=== PATIENT | female | born 2000 | race Caucasian/White ===

== ENCOUNTER 2020-09-25 09:15 | Outpatient (CLI) | payer MEDICAID, SELFPAY ==
--- NOTE | 2020-09-25 09:27 | US_ITS ---
WS: [id number] ULTRASOUND EARLY TECHNIQUE: Transabdominal sonography of the pelvis was performed. Followed by transvaginal sonography to better evaluate the uterus and ovaries. CLINICAL INFORMATION: LMP: 07/27/2020 Beta hCG: Unknown. COMPARISON: None. FINDINGS: UTERUS AND GESTATIONAL SAC Intrauterine gestations: Estimated gestational age: 8w0d Yolk sac: 0.5 cm. [place] rump length (CRL): 1.6 cm. heart motion: 160 BPM. Subchorionic hemorrhage: None. OVARIES Right ovary: Normal. Left ovary: Left ovarian cyst measuring 2.7 x 1.8 x 1.6 cm FREE FLUID None. US/US OB <= 14 weeks fetus [id number] IMPRESSION: 1. Single live intrauterine with pole. 2. Estimated gestational age; 8w0d. Estimated delivery May 07, 2021 3. Left ovarian cyst measuring 2.7 x 1.8 x 1.6cm. Right ovary is normal. 4. No free fluid in the cul-de-sac.
== END 2020-09-25 09:16 | disposition home or self-care (01) ==
LOC: RAD 09:20
PROVIDERS: Family Provider Family Medicine; Visit Provider Electrodiagnostic Medicine
DX: Z33.1 Pregnant state, incidental (principal); L40.9 Psoriasis, unspecified; Z34.01 Encounter for supervision of normal first pregnancy, first trimester; N83.202 Unspecified ovarian cyst, left side
CPT/HCPCS: 76801

== ENCOUNTER 2020-12-18 08:38 | Outpatient (CLI) | payer BC, MEDICAID, SELFPAY ==
--- NOTE | 2020-12-18 08:45 | US_ITS ---
WS: [id number] OBSTETRICAL ULTRASOUND COMPLETE HISTORY: ANATOMY/SUPERVISION NORMAL COMPARISON: 09/25/2020 Single intrauterine gestation in transverse presentation. Cervix is Closed and normal length. Cervical length is 5.0 cm. Normal amount of amniotic fluid surrounds the fetus. Placenta: Posterior, no previa or abruption. Placenta is low-lying and in 1.5 cm from the internal c ervical os. Placenta grade 1 Heart: 150 BPM. Poorly visualized 4 chambers. Outflow tracts are not identified. Anatomy: Quality of the intracranial structure identification is limited but no abnormality is identi fied. Poor visualization of the spine. There are bladder is negative. Kidneys and stomach poorly visu alized. There is a three-vessel cord. Cord insertion site and abdominal wall are poorly visualized. LEFT arm poorly visualized. profile: Limited. Gender: Male. measurements: BPD = 4.3 cm = 19w0d HC = 17.3 cm = 19w6d AC = 15.6 cm = 20w6d FL = 3.4 cm = 20w4d EFW: 360 g. Biometry is internally concordant. AGA by ultrasound: 20w1d СВЕТЛАНА by ultrasound: 05/06/2021 US/US OB >= 14 weeks fetus [id number] IMPRESSION: 1. Single intrauterine gestation of 20w1d with an СВЕТЛАНА of 05/06/2021. Appropria te growth since the first trimester ultrasound. 2. Technically very limited evaluation of anatomy. There are multiple ar eas which need further evaluation. As the entire anatomy is somewhat limited re commend follow-up ultrasound of the entire anatomy screening survey in 3-4 week s.
== END 2020-12-18 08:39 | disposition home or self-care (01) ==
LOC: RAD 08:43
PROVIDERS: PCP Family Medicine; Visit Provider Electrodiagnostic Medicine
DX: Z36.89 Encounter for other specified antenatal screening (principal); Z3A.20 20 weeks gestation of pregnancy
CPT/HCPCS: 76805

== ENCOUNTER 2021-01-18 08:26 | Outpatient (CLI) | payer BC, MEDICAID, SELFPAY ==
--- NOTE | 2021-01-18 08:35 | US_ITS ---
WS: [id number] ULTRASOUND OB COMPLETE TECHNIQUE: Complete ultrasound. CLINICAL INFORMATION: ANATOMY COMPARISON: December 18, 2020 FINDINGS: Cervix measures 5.8 cm Single interuterine gestation is identified with cephalic presentation. Placenta is posterior. Placenta grade 0. Normal amniotic fluid volume. cardiac activity: 144 BPM. AGA: 25w1d СВЕТЛАНА by ultrasound: 05/02/2021 Estimated weight: 772 g., 52 %. BDP: 6.2 cm = 25w0d HC: 23.0 cm = 25w0d AC: 20.5 cm = 25w1d FEMUR LENGTH: 4.6 cm = 25w1d Anatomic survey: Anatomic survey is normal. Normal stomach. Kidneys and bladder are normal. Normal 3 vessel cord. Norm al 3 vessel cord insertion. Normal 4 chamber heart. Normal spine. Intracranial contents are normal. N ormal posterior fossa and cisterna magna. US/US OB >= 14 weeks fetus [id number] IMPRESSION: 1. Single intrauterine with visualized cardiac activity. AGA 25 week s 1 day with СВЕТЛАНА 05/02/2021. 2. Placenta is posterior No evidence of abruption or previa. 3. anatomic survey is normal. 4. Normal amniotic fluid volume.
== END 2021-01-18 08:27 | disposition home or self-care (01) ==
LOC: US 08:27
PROVIDERS: PCP Family Medicine; Visit Provider Electrodiagnostic Medicine
DX: Z34.92 Encounter for supervision of normal pregnancy, unspecified, second trimester; Z3A.25 25 weeks gestation of pregnancy
CPT/HCPCS: 76805

== ENCOUNTER 2021-05-01 22:50 | Inpatient (IN) | payer BC, MEDICAID, SELFPAY ==
[2021-05-01] VITALS (25 sets, daily range): BP systolic 76–132; BP diastolic 53–80; PULSE 75–93; TEMP 36–36.6; O2SAT 96–98; BMI 53.5
--- NOTE | 2021-05-01 20:11 | USR_ITS ---
PROCEDURE INFORMATION: Exam: US Biophysical Profile Without Non-Stress Test Exam date and time: 05/01/2021 8:11 PM Age: 20 years old Clinical indication: status abnormalities: ; Abnormal heart rate; Single gestation; Third trimester (=28 weeks 0 days); ; Additional info: Bpp with rios TECHNIQUE: Imaging protocol: US biophysical profile without non-stress testing. COMPARISON: US OB >= 14 weeks fetus [id number] 01/18/2021 8:47 AM FINDINGS: Gestation: Single intrauterine gestation. heart rate: heart rate 144 bpm. Presentation: Cephalic presentation. Placenta: Posterior placenta. Negative for placenta previa. Negative for placenta abruption. Amniotic fluid index: Amniotic fluid index 12.47 cm. BIOPHYSICAL PROFILE: Breathin/2 Gross body movements: 2/2 tone: 0/2 Qualitative amniotic fluid: 2/2 Biophysical Profile Score: 6/8 MATERNAL ANATOMY: Cervix: Closed cervix. Cervical length 4.4 cm measured transabdominally. US/US OB BPP NST [id number] IMPRESSION: 1. Single live cephalic presentation intrauterine gestation. 2. Biophysical profile score 6/8. Radiation Dose CTDIVOL = (mGy): DLP = (mGy-cm)
[2021-05-01] MEDS: lactated ringers 1,000 ML 999 ML IV ×2 (20:18→21:15)
[2021-05-01 20:24] LABS: Bilirubin Urine Neg (Negative); Blood Urine Neg (Negative); Glucose Urine UA Norm (Normal); Ketones Urine Negative (Negative); Leukocyte Esterase Urine Negative (Negative); Nitrate Urine Negative (Negative); Protein Urine Neg (Negative); Specific Gravity, Urine 1.015 (1.005-1.030); Urine Color Yellow (Yellow); Urobilinogen Urine Norm (Negative); pH Urine 7 (5-7)
[2021-05-01 20:25] LABS: Add Urine Culture? No; Amorphous Sediment Urine 3+ /hpf; Bacteria Urine 2+ /hpf; Squamous Epithelial Cell Urine 40-55 /hpf (0-5)
[2021-05-01 20:48] LABS: Basophils # 0.1 10^3/uL (0.0-0.1); Basophils % 0.7 %; Eosinophils # 0.2 10^3/uL (0.0-0.8); Eosinophils % 1.5 %; Hematocrit 39.4 % (37.0-47.0); Hemoglobin 12.6 g/dL (11.5-15.3); Lymphocytes % 19.7 %; Mean Corpuscular Hemoglobin 29.6 pg (28.0-34.0); Mean Corpuscular Volume 92.5 fl (81-99); Mean Platelet Volume 9.6 fL (7.4-10.4); Monocytes # 1.5 10^3/uL (0.2-0.9); Monocytes % 9.7 %; Neutrophils # 10.03 10^3/uL (1.8-7.7); Neutrophils % 66.4 %; Nucleated Red Blood Cells % 0 %; Platelet Count 284 10^3/cmm (130-400); Red Blood Count 4.26 10^6/uL (4.1-5.3); Red Cell Distribution Width 14.1 % (12.1-15.1); White Blood Count 15.1 10^3/uL (4.0-10.0)
[2021-05-01 21:16] LABS: Alanine Aminotransferase 12 U/L (0-33); Albumin Level 3.4 g/dL (3.5-5.2); Alkaline Phosphatase 192 IU/L (35-105); Anion Gap 14.6 (5-19); Aspartate Amino Transferase 16 U/L (0-32); Blood Urea Nitrogen 9 mg/dL (6-20); Calcium 9.4 mg/dL (8.5-10.5); Carbon Dioxide 25 mmol/L (22-29); Chloride 102 mmol/L (98-107); Globulin 3.3 g/dL (1.3-4.6); Glomerular Filtration Rate 199.6 mL/min (90-130); Glucose 75 mg/dL (65-115); Osmolality Calculated 283 mOsm/kg (285-295); Potassium 3.6 mmol/L (3.5-5.1); Sodium 138 mmol/L (136-145); Total Bilirubin 0.2 mg/dL (0.15-1.2); Total Protein 6.7 g/dL (6.6-8.7); Uric Acid 3.9 mg/dL (2.4-5.7)
--- NOTE | 2021-05-01 22:18 | PC.NURSE ---
Education on medications provided per Dr Winn
--- NOTE | 2021-05-01 22:39 | PM.HP ---
Providers/Chief Complaint Primary Care Provider: Bryan Winn MD Chief Complaint: Abdominal pain History of Present Illness Leeann Miranda is a 20 year old at 39.5 weeks gestation by LMP consistent with 8-week ultrasound. Her is complicated by intermittent elevated blood pressures, obesity, psoriasis, elevated 1 hour GTT with normal 3-hour gtt. The patient presented to labor and delivery secondary to contractions that started the day prior to presentation and then gradually got worse by 2 in the afternoon on 05/01/2021. The contractions were noted to be every 3 to 10 minutes. She denied any leakage of fluid or vaginal bleeding, but noted that she has had diarrhea for the last 2 days. She noticed some blood in her stool at one point. She has eaten onions that were cooked in stir-poole recently. In OB triage the patient was noted to be 1/40/-4/thick. She did not make any cervical change after 2 hours. There are have been intermittent decelerations. For this reason a biophysical profile was done and she scored 6 out of 8. She lost 2 points for no movement. There was minimal breathing. Because of the combination of decelerations with a borderline biophysical profile, it was felt best to proceed with induction of labor. The patient denies any chest pains, shortness of breath, fevers, nausea, vomiting, constipation, leakage of fluid, significant abdominal pain outside of contractions, dysuria. Medications/Allergies Allergies Allergy/AdvReac Type Severity Reaction Status Date / Time cephalexin [From Keflex] Allergy Unknown Verified 05/01/21 18:30 PFSH Acute PFSH: Medical History (Updated 05/01/21 @ 22:44 by Bryan Winn MD) Psoriasis Surgical History (Updated 05/01/21 @ 22:44 by Bryan Winn MD) [place] teeth extracted Female Reproductive History: : 1 Vitals/I&O/Wt Last Vital Signs Temp 96.8 F L 05/01/21 18:10 Pulse 81 05/01/21 22:27 BP 119/68 05/01/21 22:27 Pulse Ox 98 05/01/21 20:33 Weight last 48 hrs Weight 265 lb Physical Exam Narrative: EXAM NARRATIVE: General: Alert and oriented x3 Eyes: Pupils equal round and reactive to light and accommodation Mouth: Mucous membranes moist, pharynx non-erythematous Cardiac: Regular rate and rhythm without murmurs Lungs: Clear to auscultation bilaterally without wheezes, crackles or rhonchi Abdomen: Soft, non-tender, fundus consistent with gestational age Extremities: Trace edema in the bilateral lower extremities Data : 05/01/21 20:35 05/01/21 20:40 A&P Assessment and plan (1) Obesity: Status: Acute (2) Hematochezia: Status: Acute (3) Intrauterine : Status: Acute Additional A&P Information The patient will be kept for induction of labor secondary to nonreassuring heart tones with a borderline biophysical profile. I discussed this with the patient and her and they are in agreement with proceeding with induction. We discussed the options of Cytotec versus Cervidil and I recommend Cervidil due to the nonreassuring heart tones as it can be removed quickly if needed. The patient was given fluid bolus and will continue with IV fluids. She may be volume depleted secondary to the loose stools. We will get a stool culture to look for signs of Salmonella or other bacterial source of infection. I will start her on azithromycin for coverage of this once we have a sample. The patient is GBS negative. Stadol as needed for pain. Epidural would be okay to start at 3 cm if desired. I discussed that if the baby is not tolerating labor, that a section may be necessary. We will certainly try all options that are safe prior to proceeding with . All questions were answered. The patient and her are in agreement with her plan of care. Attestations Medical Necessity Statement*: The patient will be here for greater than 2 midnights due to routine intrapartum and management of labor and delivery. 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
[2021-05-01] MEDS: dextrose 5%-lactated ringers 1,000 ML 125 ML IV (23:15)
[2021-05-02] VITALS (54 sets, daily range): BP systolic 93–159; BP diastolic 43–83; PULSE 61–108; RESP 16; TEMP 36.3; O2SAT 94–98
[2021-05-02] MEDS: dextrose 5%-lactated ringers 1,000 ML 125 ML IV ×2 (06:57→18:39)
--- NOTE | 2021-05-02 10:28 | PM.PN ---
Subjective Subjective: Interval history: Patient is feeling well today. She is having some intermittent contractions that she says are mildly painful. Overall she does not have other symptoms. Vitals/I&O/Wt Last Vital Signs Temp 97.9 F 05/01/21 22:45 Pulse 73 05/02/21 09:48 BP 123/57 05/02/21 09:48 Pulse Ox 98 05/01/21 20:33 05/01/21 05/02/21 05/02/21 22:59 06:59 14:59 Intake Total 962.5 / 962.5 Balance 962.5 / 962.5 Weight last 48 hrs Weight 265 lb Physical Exam Narrative: EXAM NARRATIVE: General: Alert and oriented x3 Eyes: Pupils equal round and reactive to light and accommodation Mouth: Mucous membranes moist, pharynx non-erythematous Cardiac: Regular rate and rhythm without murmurs Lungs: Clear to auscultation bilaterally without wheezes, crackles or rhonchi Abdomen: Soft, non-tender, fundus consistent with gestational age Extremities: Trace edema in the bilateral lower extremities Data : 05/01/21 20:35 05/01/21 20:40 A&P Assessment and plan (1) Intrauterine : Status: Acute Additional A&P Information The patient had Cervidil placed at approximately 12:25 AM on 05/02/2021. She was 1/40/-4/firm at that time. Recheck now was 1.5/40/-4/medium. The patient has been having some intermittent late decelerations. Because of this, the Cervidil has been removed. heart tones are in the mid 150s with moderate variability without accelerations. Contractions are every 5 to 8 minutes. At this point heart tones are doing okay, however to show some intermittent signs of concerns. We will go ahead and not add anything further for another hour or so and hopefully heart tones will improve. We will look at starting IV Pitocin to see how she does with this. At this time the cervix is too high for me to be able to place a Carlisle bulb. If she is tolerating IV Pitocin, my hope is that the cervix will come down sufficiently to place a Carlisle bulb if necessary. I discussed the findings with the patient and her . All questions were answered. They are in agreement with the current plan of care. Attestations Medical Necessity Statement*: The patient will be here for greater than 2 midnights intrapartum and management of labor and delivery. 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
--- NOTE | 2021-05-02 12:44 | P.MISC_ITS ---
Miscellaneous Note Note: The patient had Cervidil removed at approximately 10:30 AM today. She was having some recurrent lates at that time. Since then she has continued to have recurrent late decelerations. She has not made any change since then. heart tones are in the mid 150s with mild variability. Overall with the heart tones showing signs of intolerance of labor and the patient not making significant change, it is not felt that it would be safe to add IV Pitocin to assist with contractions. We will plan to proceed with a primary low transverse section secondary to intolerance of labor with nonreassuring heart tones. I discussed these findings with the patient an d her and they are in agreement with the current plan of care.
[2021-05-02] MEDS: clindamycin 900 MG/50 ML PREMIX 100 MG IV (12:58)
[2021-05-02] MEDS: citric acid-sodium citrate 30 mL UDC PO (12:58)
[2021-05-02] MEDS: metoclopramide 5 mg/mL SDV 2 mL 10 MG IV (12:58)
[2021-05-02] MEDS: famotidine 20 mg/2 mL INJ IVP (12:58)
--- NOTE | 2021-05-02 13:02 | P.ANESASSM_ITS ---
Pre-Anesthetic Assessment Pre-Anesthetic Assessment: Height/Weight: Height 1.5 m Weight 120.202 kg Temp Pulse BP Pulse Ox 97.9 F 83 136/82 98 05/01/21 22:45 05/02/21 12:28 05/02/21 12:28 05/01/21 20:33 Preop Diagnosis: non reassuring FHTs Proposed Procedure: Was Beta Cookie taken within 24 hours: N/A Was Clonidine taken within 24 hours: N/A Social: Social History: No alcohol and No tobacco Exam: Pre-Anes Outpt Exam: alert, oriented x 3, clear to auscultation bilaterally and regular rate & rhythm Airway: Submandibular: WNL Cervical ROM: WNL MP: 3 Dentition: Full Pulmonary: Pulmonary: None reported CV/HEM: CV/HEM: None reported : : None reported Hepatic: Hepatic: None reported GI: GI: None reported Metabolic: Metabolic: None reported Musc/skel: Musc/skel: OA/DJD Neuropsych: Neuropsych: None reported Anesthetic Plan: ASA status: 2 Anesthesia: Anesthesia Evaluation and Regional (specify below) Risk of > 500 ml blood loss (7ml/kg in children): No Meds/Allergies Current Medications: Current Medications Generic Name Dose Route Start Last Admin Trade Name Freq PRN Reason Stop Dose Admin Dextrose/Lactated Ringer's 1,000 mls @ 125 m ls/hr 05/01/21 22:27 05/02/21 06:57 Dextrose 5%-Lact ated Ringers IV 125 mls/hr .Q8H PRN Administration labor Clindamycin HCl/De xtrose 900 mg in 50 mls @ 100 mls/hr 05/02/21 12:38 05/02/21 12:58 Cleocin IV 05/02/21 13:07 100 mls/hr REGULATORY SUBMISSIONS SPECIALIST ONE Administration Protocol PFSH Anesthesia PFSH: Medical History (Updated 05/01/21 @ 22:44 by Bryan Winn MD) Psoriasis Surgical History (Updated 05/01/21 @ 22:44 by Bryan Winn MD) [place] teeth extracted Female Reproductive History: : 1 Data Anesthesia CBC & Chem 7: 05/01/21 20:35 05/01/21 20:40 Other Labs: Laboratory Results - last 48 hr 05/01/21 05/01/21 05/01/21 20:12 20:35 20:40 WBC 15.1 H RBC 4.26 Hgb 12.6 Hct 39.4 MCV 92.5 MCH 29.6 MCHC 32.0 RDW 14.1 Plt Count 284 MPV 9.6 Neut % (Auto) 66.4 Lymph % (Auto) 19.7 Bremer % (Auto) 9.7 Eos % (Auto) 1.5 Baso % (Auto) 0.7 Neut # (Auto) 10.03 H Lymph # (Auto) 3.0 Bremer # (Auto) 1.5 H Eos # (Auto) 0.2 Baso # (Auto) 0.1 Nucleated RBC % (auto) 0 Nucleated RBCs # 0.0 Sodium 138 Potassium 3.6 Chloride 102 Carbon Dioxide 25 Anion Gap 14.6 BUN 9 Creatinine 0.4 L GFR Calculation 199.6 H Glucose 75 Calculated Osmolality 283 L Uric Acid 3.9 Calcium 9.4 Total Bilirubin 0.2 AST 16 ALT 12 Alkaline Phosphatase 192 H Total Protein 6.7 Albumin 3.4 L Globulin 3.3 Urine Color Yellow Urine Appearance Sl cloudy A Urine pH 7 Ur Specific [place] 1.015 Urine Protein Neg Urine Glucose (UA) Norm Urine Ketones Negative Urine Blood Neg Urine Nitrate Negative Urine Bilirubin Neg Urine Urobilinogen Norm Ur Leukocyte Esterase Negative Urine RBC None Urine WBC None Ur Squamous Epith Cells 40-55 H Amorphous Sediment 3+ Urine Bacteria 2+ H Cardiac Studies: No Data to Display
--- NOTE | 2021-05-02 14:46 | ANES.PROC ---
Anesthesia Procedures Procedure/Date: 05/02/21 Lumbar Puncture: Time Out Performed: Yes Consent: from patient Patient Position: upright Skin Prep: Povidone-Iodine 1% Local anesthetic used: Lidocaine 1% and other (0.75% bupivacaine w/ dextrose) Amount of anesthesia used (mL): 1.4 Spinal Needle Gauge: 22G Interspace Used: L3-L4 Fluid Initially Obtained: clear Complications: none Additional Comments: Several attempts each by Malick Palacios CRNA and myself. After several attempts with standard needle, CSF obtained with 5 22g spinal needle. No pain or paresthesias during injection.
--- NOTE | 2021-05-02 15:51 | P.OP_ITS ---
Operative Report Date of procedure: May 02, 2021 Pre-op Diagnosis: non reassuring FHTs Pre-op Diagnosis: 1. Intrauterine at 39.6 weeks gestation 2. Obesity 3. Intermittent elevated blood pressures 4. Nonreassuring heart tones with low biophysical profile 5. intolerance of labor with recurrent late decelerations Post-op Diagnosis: 1. Intrauterine status post primary low transverse section at 39.6 weeks gestation 2. Obesity 3. Intermittent elevated blood pressures 4. Non-reassuring heart tones with low biophysical profile 5. intolerance of labor with recurrent late decelerations Post-op Findings: 1. Healthy infant male weighing 6 pounds 15 ounces with Apgars of 7 and 9 2. Intact placenta with scattered calcifications on placental bed 3. Tight nuchal cord x3 Procedure Done: Primary low transverse section Specimens removed/disposition: Placenta discarded Pathology: none sent Surgeon: Bryan Winn Anesthesia: Other (Spinal) Estimated blood loss (mL): 800 Complications: None Condition: stable Disposition: floor Brief History: The patient is a 20-year-old who presented to labor and delivery at 39.5 weeks gestation secondary to contractions. She was found to have intermittent decelerations with a biophysical profile of 6 out of 8 and for this reason was kept for induction of labor. With these intermittent decelerations it was felt that it was not safe to place Cytotec, however she was 1 cm thick and high. For this reason Cervidil was used so that it could be removed if necessary. After 10 hours of Cervidil placement, the patient was having recurrent late decelerations. For this reason it was removed. Initially after removal there were no further lites elevations, however these returned and approximately 1/2 hours after the Cervidil was removed she continued to have late decelerations. For this reason it was felt best to proceed with a primary low transverse section as she had no appreciable cervical change. Procedure: After informed consent was obtained, the patient was taken to the operating room and the patient was prepped and draped in a normal sterile fashion in the dorsal supine position. A spinal epidural was difficult to place, however eventually was obtained and adequate anesthesia was confirmed. At 1414 on 05/02/2021, a Pfannenstiel skin incision was made and carried through to the underlying layer of fascia using a scalpel. The fascial incision was then extended laterally using curved Mayos. The fascia was then grasped with Jordyn clamps and the underlying rectus muscles were dissected off taking care to avoid injury to the underlying tissues. The peritoneum was entered bluntly with one digit. It was then bluntly. The bladder blade was placed and the vesicouterine peritoneum was well below the lower uterine segment of the uterus. The uterine incision was made in the lower uterine segment in a transverse fas hion with the scalpel at 1418. The amniotic membrane was entered bluntly and a large amount of clear fluid was noted. The 's head delivered atraumatically without difficulty at 1420 on 05/02/2021. There was a nuchal cord x3. This was very tight and wrapped around the neck. The cord was small and did not have a significant amount of Freeland's jelly. The mouth and nose were suctioned. The rest of the infant delivered without difficulty. The infant was crying immediately upon delivery. The cord was clamped and cut and the infant was handed to the awaiting pediatric nurses. The placenta was then manually expressed. It was noted to have multiple calcifications on the placental bed. The uterus was then exteriorized from the abdomen and a wet lap was used to clear the uterus of clots and debris. The bladder blade was reinserted and the uterine incision was closed using 0 chromic in a running locking fashion. A second layer of the same suture was used in the same manner. Excellent hemostasis was obtained. Next the posterior cul-de-sac was inspected and was cleared of any blood. The uterus was then placed back into the abdomen. The gutters were cleared of any further clots and debris and the uterine incision was again inspected and hemostasis was noted. The subfascial tissue was inspected for hemostasis and the peritoneum was re-approximated using 2-0 plain in a running fashion. The fascia was then re-approximated using 0 Vicryl in a running fashion. The subcutaneous tissue was inspected for hemostasis. Farida's fascia was then re- approximated using 3-0 plain in a running fashion. Good hemostasis was noted. The subcutaneous tissue was then re-approximated using a subcuticular stitch. The patient tolerated the procedure well and was recovered in stable condition. Estimated blood loss was 800 mL. Urine in the Carlisle catheter was clear. The patient was taken to recovery in good condition.
--- NOTE | 2021-05-02 16:26 | ANE.PACU2 ---
Inpatient post-anesthesia follow up: Airway intact: Yes Vital signs: Temperature 97.9 F Pulse Rate 83 Respiratory Rate Blood Pressure 136/82 Pulse Oximetry 98 Oxygen Delivery Me thod Room Air Oxygen Flow Rate Fraction of Inspir ed Oxygen Hydration adequate: Yes Nausea and vomiting: No Pain level: 1 Mental status: Baseline
--- NOTE | 2021-05-02 16:30 | PC.NURSE ---
Assisted mother with . Was unable to get baby to latch after multiple attempts, and multiple position changes. Baby was sleepy and did not show much effort. Mother has large breasts that are firm. Nipples are flat, but become erect with stimulation, however they retract when trying to latch baby.
[2021-05-02] MEDS: ketorolac 30 mg/mL INJ IVP (21:56)
[2021-05-03] VITALS (7 sets, daily range): BP systolic 103–139; BP diastolic 68–79; PULSE 90–93; RESP 15–16; TEMP 36.9–37.2; O2SAT 94–95
[2021-05-03] MEDS: dextrose 5%-lactated ringers 1,000 ML 125 ML IV (02:19)
[2021-05-03] MEDS: ketorolac 30 mg/mL INJ IVP (04:27)
[2021-05-03 07:57] LABS: Hematocrit 35.6 % (37.0-47.0); Hemoglobin 11.4 g/dL (11.5-15.3); Mean Corpuscular Hemoglobin 29.8 pg (28.0-34.0); Mean Corpuscular Volume 93.2 fl (81-99); Mean Platelet Volume 9.5 fL (7.4-10.4); Platelet Count 230 10^3/cmm (130-400); Red Blood Count 3.82 10^6/uL (4.1-5.3); Red Cell Distribution Width 14.6 % (12.1-15.1); White Blood Count 12.5 10^3/uL (4.0-10.0)
--- NOTE | 2021-05-03 16:41 | PM.PN ---
Subjective Subjective: Interval history: The patient is doing well after surgery, however has not been up out of the bed yet. Her pain is well controlled, however there is increased pain with movement. Bleeding is decreasing well. She is attempting to breast-feed, however it has been difficult. Vitals/I&O/Wt Last Vital Signs Temp 98.1 F 05/05/21 12:30 Pulse 91 05/05/21 12:30 Resp 17 05/05/21 12:30 BP 118/68 05/05/21 12:30 Pulse Ox 97 05/05/21 04:42 Physical Exam Narrative: EXAM NARRATIVE: General: Alert and oriented x3 Cardiac: Regular rate and rhythm without murmurs Lungs: Clear to auscultation bilaterally without wheezes, crackles or rhonchi Abdomen: Soft, moderate diffuse tenderness. No rebound tenderness noted. Incision is clean and dry without signs of infection or dehiscence. Extremities: +1 pitting edema in the bilateral lower extremities Urinary Catheter Management^: Carlisle: Cath Placed During This Visit: yes, but has since been removed by the nurse Reason for Continuing Indwelling Catheter: Decision to DC Catheter Urinary Catheter Date of Insertion: 05/02/21 Urinary Catheter Time of Insertion: 14:05 Date Urinary Catheter Removed: 05/03/21 Time Urinary Catheter Discontinued: 10:00 Data : 05/03/21 07:45 05/01/21 20:40 A&P Additional A&P Information The patient is doing well after surgery. She is having some pain. She was encouraged to start getting out of the bed and we discussed increased risk for infection with decreased activity. Plan for discharge home tomorrow if she is doing well. All questions were answered. Patient is in agreement with current plan of care. Attestations Medical Necessity Statement*: The patient continues need inpatient care she recovers after section. The patient's stay will cross 2 midnights. 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
[2021-05-03] MEDS: docusate sodium 100 mg Capsule PO (17:37)
[2021-05-03] MEDS: oxyCODONE-APAP 5-325 mg Tablet PO ×2 (17:37→23:45)
[2021-05-03] MEDS: ibuprofen 800 mg tablet PO (21:19)
[2021-05-04 04:00] VITALS: BP 103/69; PULSE 72; RESP 16; O2SAT 97
[2021-05-04] MEDS: docusate sodium 100 mg Capsule PO ×2 (09:57→18:32)
[2021-05-04] MEDS: ibuprofen 800 mg tablet PO ×3 (09:57→23:12)
[2021-05-04] MEDS: prenatal vitamin Capsule 1 CAP PO (09:57)
[2021-05-04 11:00] VITALS: BP 118/72; PULSE 70; RESP 16; TEMP 36.7; O2SAT 97
[2021-05-04 17:51] VITALS: RESP 18
[2021-05-04] MEDS: oxyCODONE-APAP 5-325 mg Tablet PO (17:51)
[2021-05-04] MEDS: azithromycin 250 mg Tablet PO (21:06)
[2021-05-04 21:45] VITALS: BP 114/68; PULSE 75; RESP 18; O2SAT 98
[2021-05-05] MEDS: ondansetron 4 MG Tablet PO (02:54)
[2021-05-05 04:42] VITALS: BP 120/75; PULSE 92; RESP 16; TEMP 36.6; O2SAT 97
--- NOTE | 2021-05-05 07:58 | PC.NURSE ---
Note: This baby was latched to mom's left breast and nipple shield but was not sucking. some tongur fluttering but non-nutritive sucking at best. Had parents feed bottle and mom encouraged to express.
--- NOTE | 2021-05-05 08:23 | P.PN_ITS ---
Subjective Subjective: Interval history: Date of service: 05/04/2021 The patient is continue to have pain related to the section. She is getting up and moving around some, however not much. Her bleeding is decreasing well. She is tolerating food by mouth. Vitals/I&O/Wt Last Vital Signs Temp 97.9 F 05/05/21 04:42 Pulse 92 05/05/21 04:42 Resp 16 05/05/21 04:42 BP 120/75 05/05/21 04:42 Pulse Ox 97 05/05/21 04:42 05/04/21 05/05/21 05/05/21 22:59 06:59 14:59 Intake Total 1999 Balance 1999 Physical Exam Narrative: EXAM NARRATIVE: General: Alert and oriented x3 Eyes: Pupils equal round and reactive to light and accommodation Mouth: Mucous membranes moist, pharynx non-erythematous Cardiac: Regular rate and rhythm without murmurs Lungs: Clear to auscultation bilaterally without wheezes, crackles or rhonchi Abdomen: Soft, moderate diffuse tenderness. No rebound tenderness noted. Incision is clean and dry without signs of infection or dehiscence. Extremities: +1 pitting edema in the bilateral lower extremities Urinary Catheter Management^: [place]: Cath Placed During This Visit: yes, but has since been removed by the nurse Reason for Continuing Indwelling Catheter: Decision to DC Catheter Urinary Catheter Date of Insertion: 05/02/21 Urinary Catheter Time of Insertion: 14:05 Date Urinary Catheter Removed: 05/03/21 Time Urinary Catheter Discontinued: 10:00 Data : 05/03/21 07:45 05/01/21 20:40 A&P Additional A&P Information The patient continues need inpatient care as she is recovering slowly from section. She is being encouraged to ambulate in the hallway to decrease risk for infection and help improve healing. Hopefully she can be discharged home by tomorrow if she continues to improve. Attestations Medical Necessity Statement*: The patient continues need inpatient care as she recovers after section. My hope is that she can be discharged home tomorrow. Coding Level of Care Code Acute [place] [employer] Operator for Olegario Joyce
--- NOTE | 2021-05-05 08:24 | PM.DCS ---
Discharge Providers Date of Admission: 05/01/21 22:50 Date of Discharge: May 05, 2021 Attending Provider at Admission: Bryan Winn MD Attending Provider at Discharge: Bryan Winn MD Primary Care Provider: Bryan Winn MD Diagnoses at Discharge Discharge Diagnosis (1) Intrauterine : Status: Resolved (2) Delivery by section: Status: Acute Other Information Additional DC diagnoses/information: 1. Intrauterine status post primary low transverse section at 39.6 weeks gestation 2. Obesity 3. Intermittent elevated blood pressures 4. Non-reassuring heart tones with low biophysical profile 5. intolerance of labor with recurrent late decelerations Reason for Visit Reason for Visit: Abdominal pain Hospital Course Hospital Course Brief History: The patient is a 20-year-old who presented to labor and delivery at 39.5 weeks gestation secondary to contractions. She was found to have intermittent decelerations with a biophysical profile of 6 out of 8 and for this reason was kept for induction of labor. With these intermittent decelerations it was felt that it was not safe to place Cytotec, however she was 1 cm thick and high. For this reason Cervidil was used so that it could be removed if necessary. After 10 hours of Cervidil placement, the patient was having recurrent late decelerations. For this reason it was removed. Initially after removal there were no further lites elevations, however these returned and approximately 1/2 hours after the Cervidil was removed she continued to have late decelerations. For this reason it was felt best to proceed with a primary low transverse section as she had no appreciable cervical change. The patient had a primary low transverse section without complication. The patient has done well since delivery and did have difficulties with ambulation secondary to pain. She is starting to show signs of improvement with ambulation and her pain is now well controlled. Her bleeding is decreasing well. She is tolerating food by mouth. She is voiding and passing gas. Routine discharge instructions were discussed with the patient and all questions were answered. The patient is in agreement with the current plan of care. Physical Exam Narrative: EXAM NARRATIVE: General: Alert and oriented x3 Cardiac: Regular rate and rhythm without murmurs Lungs: Clear to auscultation bilaterally without wheezes, crackles or rhonchi Abdomen: Soft, mild to moderate diffuse tenderness. Incision is clean and dry without signs of infection or dehiscence. Extremities: +1 pitting edema in the bilateral lower extremities Urinary Catheter Management^: [place]: Cath Placed During This Visit: yes, but has since been removed by the nurse Reason for Continuing Indwelling Catheter: Decision to DC Catheter Urinary Catheter Date of Insertion: 05/02/21 Urinary Catheter Time of Insertion: 14:05 Date Urinary Catheter Removed: 05/03/21 Time Urinary Catheter Discontinued: 10:00 Discharge Data Data Completed and Pending: Completed Studies During Hospitalization Category Date Time Status US OB BPP w o NST 19608 Routin e Ultrasound 05/01/21 20:11 Completed Pending at discharge Category Date Time Status Stool Culture, Ba cterial [Enteric B acterial Panel by Lab 05/01/21 22:52 Uncollected PCR] Routine Vitals: Last Vital Signs Temp 97.9 F 05/05/21 04:42 Pulse 92 05/05/21 04:42 Resp 16 05/05/21 04:42 BP 120/75 05/05/21 04:42 Pulse Ox 97 05/05/21 04:42 Discharge Plan Discharge Condition: Stable Prescriptions: New oxycodone-acetaminophen 5-325 mg Tablet 1 tab PO Q6H PRN (Reason: Moderate To Severe Pain) Qty: 15 RF: 0 ferrous sulfate 325 mg (65 mg iron) Tablet,Delayed Release (Dr/Ec) 325 mg PO BIDWM Qty: 30 RF: 0 -U 106.5-1 mg Capsule 1 cap PO BREAKFAST Qty: 30 RF: 0 ibuprofen 800 mg Tablet 800 mg PO TID Qty: 60 RF: 0 Discharge Orders: Discharge Order (Routine); Ordered 05/05/21 Ordered By: Bryan Winn Referrals: Bryan Winn MD [Primary Care Provider] - 05/07/21 (Appointment at 11 am on 05/07 please arrive at 1050 to fill out paper work for baby.) Discharge Diet: Usual diet Discharge Activity: Limit activity as instructed Patient Instructions: Depression (GEN), Bleeding (GEN), Preeclampsia and Eclampsia After Delivery (GEN), (GEN), OB Discharge Report, OB Food/Drug Interaction Guide, OB Feeding Plan, OB Home Care Instructions, Opioid Safety, OB Home Care, OB Your Care - [facility], OB Proud Parent Packet, Abnormal Bleeding Activity Restrictions/Additional Instructions: Do not lift anything heavier than your in the car seat for the first 3 weeks, then gradually increase. If you have any concern that your incision is becoming infected, please seek immediate medical attention. Nothing per vagina for 6 weeks. Discharge Attestations Time Spent in Discharge Care*: greater than 30 min Quality Metrics Clinical Quality Measures During this hospital stay, did patient experience: None Coding Level of Care Code Acute Chg FW DC note Diagnoses Intrauterine Z34.90 Delivery by section
[2021-05-05] MEDS: ibuprofen 800 mg tablet PO (08:57)
[2021-05-05] MEDS: prenatal vitamin Capsule 1 CAP PO (08:58)
[2021-05-05] MEDS: docusate sodium 100 mg Capsule PO (08:58)
[2021-05-05 09:50] VITALS: BP 122/70; PULSE 90; RESP 16; TEMP 36.7
[2021-05-05 12:15] VITALS: BP 118/68; PULSE 91; RESP 17; TEMP 36.7
[2021-05-05] MEDS: acetaminophen 325 mg Tablet 650 MG PO (12:25)
[2021-05-05 12:30] VITALS: BP 118/68; PULSE 91; RESP 17; TEMP 36.7
== END 2021-05-05 12:58 | disposition home or self-care (01) | DRG 787 ==
PROVIDERS: Admitting Provider Family Medicine; PCP Family Medicine; Visit Provider Family Medicine
PROC: 10D00Z1 Extraction of Products of Conception, Low, Open Approach (ICD-10-PCS; CPT 59514; principal; 2021-05-02 12:45)
DX: O76 Abnormality in fetal heart rate and rhythm complicating labor and delivery (principal); K92.1 Melena; O99.214 Obesity complicating childbirth; O69.2XX0 Labor and delivery complicated by other cord entanglement, with compression, not applicable or unspecified; Z3A.39 39 weeks gestation of pregnancy; Z37.0 Single live birth; O75.89 Other specified complications of labor and delivery; L40.9 Psoriasis, unspecified
CPT/HCPCS: 36415; 51702; 59025; 76819; 80053; 81001; 84550; 85025; 85027; 98960; 99211; J1200; J1885; J2274; J2405; J2765; J3010; J3490; J7030; Q0144; Q0162

== ENCOUNTER 2022-02-09 12:26 | Outpatient (CLI) | payer BC, MEDICAID, SELFPAY ==
[2022-02-09 13:40] LABS: Progesterone 4.18 ng/mL
== END 2022-02-09 12:27 | disposition home or self-care (01) ==
LOC: LAB 12:31
PROVIDERS: PCP Family Medicine; Visit Provider Family Medicine
DX: N93.9 Abnormal uterine and vaginal bleeding, unspecified (principal)
CPT/HCPCS: 36415; 84144; 84702

== ENCOUNTER 2022-02-11 10:13 | Outpatient (CLI) | payer BC, MEDICAID, SELFPAY ==
[2022-02-11 11:00] LABS: Progesterone 1.98 ng/mL
== END 2022-02-11 10:14 | disposition home or self-care (01) ==
LOC: LAB 10:14
PROVIDERS: PCP Family Medicine; Visit Provider Family Medicine
DX: N93.9 Abnormal uterine and vaginal bleeding, unspecified (principal)
CPT/HCPCS: 36415; 84144; 84702

== ENCOUNTER 2022-03-04 11:37 | Outpatient (CLI) | payer BC, MEDICAID, SELFPAY | END 2022-03-04 11:38 | disposition home or self-care (01) | LOC: RAD 11:40 | PROVIDERS: PCP Family Medicine; Visit Provider Family Medicine | DX: N93.9 Abnormal uterine and vaginal bleeding, unspecified (principal) | CPT/HCPCS: 36415; 84144; 84702 ==

== ENCOUNTER → 2022-04-29 10:13 | Outpatient (BNVA) | payer BC, MEDICAID, SELFPAY | PROVIDERS: PCP Family Medicine; Visit Provider Family Medicine | DX: Z01.419 Encounter for gynecological examination (general) (routine) without abnormal findings (principal) | CPT/HCPCS: 87624 ==

== ENCOUNTER → 2023-04-25 11:40 | Outpatient (BNVA) | payer BC, MEDICAID, SELFPAY | PROVIDERS: PCP Family Medicine; Visit Provider Family Medicine | DX: J02.9 Acute pharyngitis, unspecified (principal); R51.9 Headache, unspecified; J06.9 Acute upper respiratory infection, unspecified | CPT/HCPCS: 87880 ==

== ENCOUNTER → 2023-07-17 10:29 | Outpatient (BNVA) | payer BC, MEDICAID, SELFPAY | PROVIDERS: PCP Family Medicine; Visit Provider Family Medicine | DX: Z34.90 Encounter for supervision of normal pregnancy, unspecified, unspecified trimester (principal) | CPT/HCPCS: 80307; 81000; 81025; 85025; 87086; 87491; 87591; 87624 ==

== ENCOUNTER 2023-07-24 11:38 | Outpatient (CLI) | payer BC, MEDICAID, SELFPAY ==
[2023-07-24 12:26] LABS: Basophils # 0.1 10^3/uL (0.0-0.1); Basophils % 0.7 %; Eosinophils # 0.2 10^3/uL (0.0-0.8); Eosinophils % 2.8 %; Hematocrit 43.3 % (36-47); Lymphocytes # 2.1 10^3/uL (0.8-4.8); Lymphocytes % 28.7 %; Mean Corpuscular HGB Conc 33.3 g/dL (30-55); Mean Corpuscular Hemoglobin 29.8 pg (27-33); Mean Corpuscular Volume 89.5 fl (85-98); Monocytes # 0.6 10^3/uL (0.2-0.9); Monocytes % 7.8 %; Neutrophils # 4.44 10^3/uL (1.8-7.7); Neutrophils % 59.7 %; Nucleated Red Blood Cells % 0 %; Platelet Count 359 10^3/cmm (157-399); Red Blood Count 4.84 10^6/uL (3.85-5.65); Red Cell Distribution Width 12.5 % (12.1-15.1); White Blood Count 7.43 10^3/uL (3.29-11.43)
[2023-07-24 13:11] LABS: Hepatitis B Surface Antigen Non-Reactive (Nonreactive); Hepatitis C Virus Antibody Non-Reactive (Nonreactive); Rubella IgG 84.8 IU/mL (0.0-10.0)
[2023-07-24 13:12] LABS: Rapid Plasma Reagin Syphilis Nonreactive (Nonreactive)
[2023-07-24 13:18] LABS: HIV 1 & 2 Antibody Non-Reactive (Non-Reactiv); HIV 1 & 2 Antigen Non-Reactive (Non-Reactiv)
[2023-07-24 13:55] LABS: Progesterone 21.68 ng/mL
== END 2023-07-24 11:39 | disposition home or self-care (01) ==
LOC: LAB 11:39
PROVIDERS: PCP Family Medicine; Visit Provider Family Medicine
DX: Z34.90 Encounter for supervision of normal pregnancy, unspecified, unspecified trimester (principal)
CPT/HCPCS: 84144; 84443; 84702; 85025; 86592; 86762; 86803; 86850; 86900; 87340; 87806

== ENCOUNTER 2023-07-26 09:12 | Outpatient (CLI) | payer BC, MEDICAID, SELFPAY ==
--- NOTE | 2023-07-26 09:30 | US_ITS ---
WS: [id number] EARLY OBSTETRICAL ULTRASOUND (<14 WEEKS). HISTORY: Dating US COMPARISON: None available. Single intrauterine gestational sac is identified. Cardiac activity at 147 BPM. [place]-rump length [place] sures 1.4 cm which corresponds to a gestation of 7w5d. Normal-appearing yolk sac and amnion demonstra richard. No subchorionic hemorrhage. No free fluid. Neither ovary identified. No adnexal mass. IMPRESSION: 1. Single intrauterine gestation of 7 weeks 5 days with an EDC of 03/08/2024. 2. Normal cardiac activity.
== END 2023-07-26 09:13 | disposition home or self-care (01) ==
LOC: RAD 09:12
PROVIDERS: PCP Family Medicine; Visit Provider Family Medicine
DX: Z34.81 Encounter for supervision of other normal pregnancy, first trimester (principal)
CPT/HCPCS: 76801

== ENCOUNTER 2023-10-17 16:03 | Emergency (ER) | payer BC, MEDICAID, SELFPAY ==
[2023-10-17 16:07] VITALS: BP 119/80; PULSE 83; RESP 16; TEMP 36.7; O2SAT 98
--- NOTE | 2023-10-17 16:22 | ED_ITS ---
HPI - Abdominal Pain 2 General: Chief Complaint: Abdominal Pain Stated Complaint: OB sent, pelvic pian, 19 weeks prg Time Seen by Provider: 10/17/23 16:15 Source: patient Mode of arrival: ambulatory Limitations: no limitations History of Present Illness: 22-year-old female who is currently 19 w eeks states that starting this morning she has been having some lower abdominal cramping she states it suprapubic in nature states the cramping seems to wax and wane the pain is currently 6 out of 10 she denies any vaginal bleeding denies any vaginal discharge denies any fevers or vomiting. Associated Symptoms: Denies chills, diarrhea, fever(s), nausea and vomiting Review of Systems 2 Const: Denies: fever(s), chills, body aches or change in appetite ENMT: Denies: throat pain or dental pain Card: Denies: chest pain Resp: Denies: dyspnea GI: Reports: abdominal pain; Denies: nausea, vomiting or diarrhea Musc: Denies: neck pain or back pain Skin/Breast: Denies: rash Neuro: Denies: headache(s) PFSH ED 2 PFSH: Medical History Psoriasis Surgical History History of low transverse section [place] teeth extracted Family History Grandmother Diabetes Type 1, other cousins with Type 1 as well Social History Smoking and tobacco/nicotine status: never used tobacco/nicotine Alcohol intake: never Substance/Drug Use: never Physical Exam 2 Const: COMMON NORMALS: no acute distress, patient oriented x3 and healthy appearing HENMT: COMMON NORMALS: normocephalic and atraumatic HEAD & SCALP: n ormocephalic and atraumatic Eye: COMMON NORMALS: conjunctivae normal CONJUNCTIVA: Yes conjunctivae normal Neck/C-Spine: COMMON NORMALS: full ROM and supple Chest: COMMONS NORMALS: normal inspection of the chest Resp: COMMON NORMALS: normal respiratory effort Cardio: COMMON NORMALS: regular rate, regular rhythm and No murmurs present (Cardio) RATE: regular rate RHYTHM: regular rhythm GI: COMMON NORMALS: Normal to inspection, nondistended, normoactive bowel sounds present, Soft to palpation, non-tender and no masses PALPATION: Yes Soft to palpation Extremity: COMMON NORMALS: normal to inspection and full ROM Neuro: COMMON NORMALS: patient oriented x3, moves all extremities and no focal motor deficits Psych: COMMON NORMALS: mental status grossly normal, Normal thought process present and cooperative THOUGHT PROCESS: Normal thought process present Skin: COMMON NORMALS: no rashes or lesions noted and no wounds GENERAL SKIN EXAM: no rashes or lesions noted Course 2 Vital Signs: Vital signs: Vital Signs Temperature 98.0 F 10/17/23 16:07 Pulse Rate 86 10/17/23 17:12 Respiratory Rate 16 10/17/23 17:12 Blood Pressure 123/72 10/17/23 17:12 Pulse Oximetry 97 10/17/23 17:12 Oxygen Delivery Me thod Room Air 10/17/23 17:12 MDM - Abdominal Pain Medical Decision Making Patient presents here with abdominal pain abdominal exam is benign no signs appendicitis bedside ultrasound IUP consistent with dates heart rate is 146 she feels improved after fluids she is stable for discharge she is follow-up with your OB provider and return if worsening she understands agrees to plan Medical Records I reviewed the patient's medical records. Lab Data I reviewed the patient's lab results. 10/17/23 16:42 10/17/23 16:42 Labs/Radiology: Laboratory Results WBC 10.88 10^3/uL (3.29-11.43) 10/17/23 16:42 RBC 4.52 10^6/uL (3.85-5.65) 10/17/23 16:42 Hgb 13.60 g/dL (11.27-16.99) 10/17/23 16:42 Hct 41.1 % (36-47) 10/17/23 16:42 MCV 90.9 fl (85-98) 10/17/23 16:42 MCH 30.1 pg (27-33) 10/17/23 16:42 MCHC 33.1 g/dL (30-55) 10/17/23 16:42 RDW 13.2 % (12.1-15.1) 10/17/23 16:42 Plt Count 311 10^3/cmm (157-399) 10/17/23 16:42 MPV 9.1 fL (7.4-10.4) 10/17/23 16:42 Neut % (Auto) 62.8 % 10/17/23 16:42 Lymph % (Auto) 24.7 % 10/17/23 16:42 [place] % (Auto) 6.7 % 10/17/23 16:42 Eos % (Auto) 3.1 % 10/17/23 16:42 Baso % (Auto) 0.6 % 10/17/23 16:42 Neut # (Auto) 6.83 10^3/uL (1.8-7.7) 10/17/23 16:42 Lymph # (Auto) 2.7 10^3/uL (0.8-4.8) 10/17/23 16:42 [place] # (Auto) 0.7 10^3/uL (0.2-0.9) 10/17/23 16:42 Eos # (Auto) 0.3 10^3/uL (0.0-0.8) 10/17/23 16:42 Baso # (Auto) 0.1 10^3/uL (0.0-0.1) 10/17/23 16:42 Nucleated RBC % (auto) 0 % 10/17/23 16:42 Nucleated RBCs # 0.0 /100WBC 10/17/23 16:42 Sodium 140 mmol/L (136-145) 10/17/23 16:42 Potassium 3.6 mmol/L (3.5-5.1) 10/17/23 16:42 Chloride 105 mmol/L (98-107) 10/17/23 16:42 Carbon Dioxide 24 mmol/L (22-29) 10/17/23 16:42 Anion Gap 14.6 (5-19) 10/17/23 16:42 BUN 7 mg/dL (6-20) 10/17/23 16:42 Creatinine 0.4 mg/dL (0.5-0.9) L 10/17/23 16:42 GFR Calculation 196.1 mL/min (90-130) H 10/17/23 16:42 Glucose 87 mg/dL (65-115) 10/17/23 16:42 Calculated Osmolality 287 mOsm/kg (285-295) 10/17/23 16:42 Calcium 9.6 mg/dL (8.5-10.5) 10/17/23 16:42 Total Bilirubin 0.2 mg/dL (0.15-1.2) 10/17/23 16:42 AST 15 U/L (0-32) 10/17/23 16:42 ALT 13 U/L (0-33) 10/17/23 16:42 Alkaline Phosphatase 88 U/L (35-105) 10/17/23 16:42 Total Protein 7.1 g/dL (6.6-8.7) 10/17/23 16:42 Albumin 4.0 g/dL (3.5-5.2) 10/17/23 16:42 Globulin 3.1 g/dL (1.3-4.6) 10/17/23 16:42 Urine Color Light yellow (Yellow) 10/17/23 16:43 Urine Appearance Hazy (CLEAR) A 10/17/23 16:43 Urine pH 7 (5-7) 10/17/23 16:43 Ur Specific [place] 1.005 (1.005-1.030) 10/17/23 16:43 Urine Protein Neg (Negative) 10/17/23 16:43 Urine Glucose (UA) Norm (Normal) 10/17/23 16:43 Urine Ketones Negative (Negative) 10/17/23 16:43 Urine Blood Neg (Negative) 10/17/23 16:43 Urine Nitrate Negative (Negative) 10/17/23 16:43 Urine Bilirubin Neg (Negative) 10/17/23 16:43 Urine Urobilinogen Norm mg/dL (Negative) 10/17/23 16:43 Ur Leukocyte Esterase Negative (Negative) 10/17/23 16:43 Urine RBC None /hpf (0-2) 10/17/23 16:43 Urine WBC None /hpf (0-5) 10/17/23 16:43 Ur Squamous Epith Cells 15-25 /hpf (0-5) H 10/17/23 16:43 Ur Transition Epith Cell 0-4 /hpf 10/17/23 16:43 Amorphous Sediment Not Reportable 10/17/23 16:43 Urine Bacteria 1+ /hpf (NONE) H 10/17/23 16:43 Urine Mucus None /hpf 10/17/23 16:43 No radiology studies performed this visit Discharge Plan Discharge Patient Disposition: Home Clinical Impression: Abdominal pain affecting Condition: Stable Prescriptions: New metoclopramide HCl [Reglan] 10 mg tablet 10 mg PO Q6H PRN (Reason: nausea and vomiting) Qty: 20 0RF No Action cimetidine 400 mg tablet 400 mg PO BID Qty: 60 6RF Rx Instructions: administer with meals mometasone 0.1 % cream See Rx Instructions .ROUTE .COMPLEX Qty: 45 1RF Dose Instruction: APPLY A SMALL AMOUNT TO AFFECTED AREA EVERY EVENING Rx Instructions: APPLY A SMALL AMOUNT TO AFFECTED AREA EVERY EVENING sertraline 50 mg tablet 50 mg PO DAILY Qty: 30 6RF Hold Instructions: Being held during Discharge Orders: Discharge ED (Routine); Ordered 10/17/23 Ordered By: Elsy Givens Referrals: Bryan Winn MD [Primary Care Provider] - 1-3 days Discharge Diet: Advance as tolerated Discharge Activity: Resume usual activity Patient Instructions: Abdominal Pain (ED), Abdominal Pain in (ED) Coding Level of Care Code ED [employer]p [employer] Development for Olegario Joyce
[2023-10-17] MEDS: sodium chloride 0.9% 1,000 ML 999 ML IV (16:47)
[2023-10-17] MEDS: diphenhydrAMINE 50 mg/mL SDV 1mL IVP (16:48)
[2023-10-17] MEDS: metoclopramide 5 mg/mL SDV 2 mL 10 MG IVP (16:48)
[2023-10-17 16:51] LABS: Basophils # 0.1 10^3/uL (0.0-0.1); Basophils % 0.6 %; Eosinophils # 0.3 10^3/uL (0.0-0.8); Eosinophils % 3.1 %; Hematocrit 41.1 % (36-47); Lymphocytes # 2.7 10^3/uL (0.8-4.8); Lymphocytes % 24.7 %; Mean Corpuscular HGB Conc 33.1 g/dL (30-55); Mean Corpuscular Hemoglobin 30.1 pg (27-33); Mean Corpuscular Volume 90.9 fl (85-98); Mean Platelet Volume 9.1 fL (7.4-10.4); Monocytes # 0.7 10^3/uL (0.2-0.9); Monocytes % 6.7 %; Neutrophils # 6.83 10^3/uL (1.8-7.7); Neutrophils % 62.8 %; Nucleated Red Blood Cells % 0 %; Platelet Count 311 10^3/cmm (157-399); Red Blood Count 4.52 10^6/uL (3.85-5.65); Red Cell Distribution Width 13.2 % (12.1-15.1); White Blood Count 10.88 10^3/uL (3.29-11.43)
[2023-10-17 16:52] VITALS: PULSE 83; RESP 16; O2SAT 99
[2023-10-17 17:09] LABS: Alanine Aminotransferase 13 U/L (0-33); Alkaline Phosphatase 88 U/L (35-105); Anion Gap 14.6 (5-19); Aspartate Amino Transferase 15 U/L (0-32); Blood Urea Nitrogen 7 mg/dL (6-20); Calcium 9.6 mg/dL (8.5-10.5); Carbon Dioxide 24 mmol/L (22-29); Chloride 105 mmol/L (98-107); Globulin 3.1 g/dL (1.3-4.6); Glomerular Filtration Rate 196.1 mL/min (90-130); Glucose 87 mg/dL (65-115); Osmolality Calculated 287 mOsm/kg (285-295); Potassium 3.6 mmol/L (3.5-5.1); Sodium 140 mmol/L (136-145); Total Bilirubin 0.2 mg/dL (0.15-1.2); Total Protein 7.1 g/dL (6.6-8.7)
[2023-10-17 17:12] VITALS: BP 123/72; PULSE 86; RESP 16; O2SAT 97
[2023-10-17 17:14] LABS: Add Urine Microscopic? YES; Bilirubin Urine Neg (Negative); Blood Urine Neg (Negative); Glucose Urine UA Norm (Normal); Ketones Urine Negative (Negative); Leukocyte Esterase Urine Negative (Negative); Nitrate Urine Negative (Negative); Protein Urine Neg (Negative); Specific Gravity, Urine 1.005 (1.005-1.030); Urine Appearance Hazy (CLEAR); Urine Color Light yellow (Yellow); Urobilinogen Urine Norm (Negative); pH Urine 7 (5-7)
[2023-10-17 17:16] LABS: Bacteria Urine 1+ /hpf; Squamous Epithelial Cell Urine 15-25 /hpf (0-5); Transitional Epi Cells Urine 0-4 /hpf
[2023-10-17 17:17] LABS: Add Urine Culture? No
[2023-10-17 17:46] VITALS: BP 100/70; PULSE 80; RESP 16; O2SAT 100
== END 2023-10-17 17:47 | disposition home or self-care (01) ==
PROVIDERS: Emergency Provider Emergency Medicine; PCP Family Medicine
DX: O26.892 Other specified pregnancy related conditions, second trimester (principal); R10.30 Lower abdominal pain, unspecified; Z3A.19 19 weeks gestation of pregnancy
CPT/HCPCS: 80053; 81001; 85025; 96374; 96375; 99284; J1200; J2765; J7030

== ENCOUNTER 2023-10-23 09:05 | Outpatient (CLI) | payer BC, MEDICAID, SELFPAY ==
--- NOTE | 2023-10-23 09:15 | USR_ITS ---
PROCEDURE INFORMATION: Exam: US , Limited Exam date and time: 10/23/2023 9:12 AM Age: 22 years old Clinical indication: Screening exam; Routine US, uterus; Additional info: Anatomy US - about 6 weeks from now LABS AND CLINICAL REPORTS: Gestational age (Established): 20 w 3 d Estimated due date (Established): 03/08/2024 TECHNIQUE: Imaging protocol: Real-time ultrasound of the maternal uterus with image documentation. Exam focused on the clinical indication. COMPARISON: US OB <= 14 weeks fetus [id number] 07/26/2023 9:28 AM FINDINGS: Gestation: There is a single living intrauterine . The presentation is vertex. heart rate: 157 bpm Amniotic fluid index: JOSÉ MIGUEL is 13.12 cm. BIOMETRY: Estimated weight: 332.42 g. EFW by AC, BPD, FL, HC, [place] 1985 Biparietal diameter (BPD): 4.78 cm. EGA (BPD) is 20 w 3 d. 50.6 % percentile Head circumference (HC): 17.85 cm. EGA (HC) is 20 w 2 d. 35.7 % percentile Abdominal circumference (AC): 14.79 cm. EGA (AC) is 20 w 0 d. 31.8 % percentile Femur length (FL): 3.23 cm. EGA (FL) is 20 w 0 d. 29.2 % percentile Cephalic Index (CI): 78.36. (Normal range: 70 - 86) HC/AC: 1.21. (Normal range: 1.08 - 1.25) FL/HC: 18.1. (Normal range: 16.8 - 19.8) FL/BPD: 67.57 FL/AC: 21.84 The placenta is posterior and there is placenta previa. The visualized stomach, cord insertion, spine, bladder, three-vessel cord, four-chamber heart, extremities and nose/lips appear unremarkable. The outflow tracts are not well seen. The gender is not positively identified. MATERNAL: Cervix: Cervical length measures 3.4 cm. US/US OB >= 14 weeks fetus [id number] IMPRESSION: There is a single living intrauterine with an estimated gestational age of 20 weeks and 0 days. The СВЕТЛАНА is 03/11/24. There is placenta previa.
== END 2023-10-23 09:06 | disposition home or self-care (01) ==
LOC: RAD 09:07
PROVIDERS: PCP Family Medicine; Visit Provider Family Medicine
DX: Z34.92 Encounter for supervision of normal pregnancy, unspecified, second trimester (principal)
CPT/HCPCS: 76805

== ENCOUNTER 2023-12-07 09:59 | Outpatient (CLI) | payer BC, MEDICAID, SELFPAY ==
[2023-12-07 12:05] LABS: Glucose Tolerance 1 Hour Gest 143 mg/dL (70-139)
== END 2023-12-07 10:00 | disposition home or self-care (01) ==
LOC: LAB 10:00
PROVIDERS: PCP Family Medicine; Visit Provider Family Medicine
DX: Z34.80 Encounter for supervision of other normal pregnancy, unspecified trimester (principal)
CPT/HCPCS: 82950; 90715

== ENCOUNTER 2023-12-29 11:08 | Outpatient (CLI) | payer BC, MEDICAID, SELFPAY ==
--- NOTE | 2023-12-29 11:15 | US_ITS ---
WS: [id number] ULTRASOUND OB LIMITED TECHNIQUE: Limited ultrasound examination of the fetus. CLINICAL INFORMATION: Placental location, profile, gender - 8 wks from now COMPARISON: 10/23/2023 FINDINGS: Cervix is long and closed measuring 4.4 cm Single interuterine gestation. presentation is transverse. head maternal LEFT side. Placental location is posterior. Placenta grade: 2 heart rate 144 BPM. EGA 30 weeks 0 days СВЕТЛАНА 03/08/2024 US/US OB limited [id number] IMPRESSION: 1. Gender and profile unobtainable due to position 2. Cervix is long and closed. 3. Posterior placenta with partial previa. Recommend third trimester follow-up . 4. presentation is transverse.
== END 2023-12-29 11:09 | disposition home or self-care (01) ==
LOC: RAD 11:08
PROVIDERS: PCP Family Medicine; Visit Provider Family Medicine
DX: O44.23 Partial placenta previa NOS or without hemorrhage, third trimester (principal); Z3A.30 30 weeks gestation of pregnancy
CPT/HCPCS: 76815

== ENCOUNTER 2024-01-08 07:53 | Outpatient (CLI) | payer BC, MEDICAID, SELFPAY ==
[2024-01-08 08:40] LABS: Glucose Fasting Gestational 93 mg/dL (65-115)
[2024-01-08 10:19] LABS: Glucose 1 Hour 148 mg/dL
[2024-01-08 11:45] LABS: Glucose 2 Hour 100 mg/dL
[2024-01-08 12:21] LABS: Glucose 3 Hour 74 mg/dL
== END 2024-01-08 07:54 | disposition home or self-care (01) ==
LOC: LAB 07:53
PROVIDERS: PCP Family Medicine; Visit Provider Family Medicine
DX: O99.810 Abnormal glucose complicating pregnancy (principal)
CPT/HCPCS: 36415; 82951; 82952

== ENCOUNTER 2024-01-16 10:59 | Outpatient (CLI) | payer BC, MEDICAID, SELFPAY ==
[2024-01-16 11:23] LABS: Basophils # 0.1 10^3/uL (0.0-0.1); Basophils % 0.5 %; Eosinophils # 0.3 10^3/uL (0.0-0.8); Eosinophils % 3.1 %; Hematocrit 37.4 % (36-47); Lymphocytes # 1.9 10^3/uL (0.8-4.8); Lymphocytes % 19.4 %; Mean Corpuscular HGB Conc 32.6 g/dL (30-55); Mean Corpuscular Hemoglobin 30.8 pg (27-33); Mean Corpuscular Volume 94.4 fl (85-98); Mean Platelet Volume 9.2 fL (7.4-10.4); Monocytes # 0.8 10^3/uL (0.2-0.9); Monocytes % 7.7 %; Neutrophils # 6.65 10^3/uL (1.8-7.7); Neutrophils % 67.5 %; Nucleated Red Blood Cells % 0 %; Platelet Count 238 10^3/cmm (157-399); Red Blood Count 3.96 10^6/uL (3.85-5.65); White Blood Count 9.86 10^3/uL (3.29-11.43)
== END 2024-01-16 11:00 | disposition home or self-care (01) ==
PROVIDERS: PCP Family Medicine; Visit Provider Family Medicine
DX: Z51.81 Encounter for therapeutic drug level monitoring (principal); O09.93 Supervision of high risk pregnancy, unspecified, third trimester
CPT/HCPCS: 36415; 85025

== ENCOUNTER → 2024-02-05 08:23 | Outpatient (BNVA) | payer BC, MEDICAID, SELFPAY | PROVIDERS: PCP Family Medicine; Visit Provider Family Medicine | DX: O26.899 Other specified pregnancy related conditions, unspecified trimester (principal); Z34.90 Encounter for supervision of normal pregnancy, unspecified, unspecified trimester | CPT/HCPCS: 87081 ==

== ENCOUNTER 2024-03-04 05:17 | Inpatient (IN) | payer BC, MEDICAID, SELFPAY ==
--- NOTE | 2024-02-26 09:08 | P.ANESASSM_ITS ---
Pre-Anesthetic Assessment Height/Weight: Height 1.5 m Operation Date: 03/04/24 07:20 Proposed Procedures p Section Repeat With Tubal 32872, 71165, O34.219(Not Applicable) - Bryan Winn MD Familial anesthetic complications: Required for heart decels and spinal was difficult to place d/t scoliosis - note from Dr. Rm regarding placement --> Several attempts each by Malick Palacios CRNA and myself. After several attempts with standard needle, CSF obtained with 5 22g spinal needle Social No alcohol and No tobacco Exam alert, oriented x 3, clear to auscultation bilaterally and regular rate & rhythm Airway Mallampati: Class III Dentition: full Metabolic Morbid Obesity Anesthetic Plan ASA status: 2 Anesthesia: Regional (specify below) Risk of > 500 ml blood loss (7ml/kg in children): Yes, adequate IV access and fluids planned Other Pertinent Information patient would like her to brace her during spinal placement because she felt previous nurse didn't support her well enough and she felt unstable on OR table Medications/Allergies Home Medications Medication Instructions Recorded Confirmed Last Taken Type mometasone 0.1 % topical cream See Rx Instructions .Route 06/17/22 02/20/24 Unknown Rx .COMPLEX #45 grams sertraline 50 mg tablet 50 mg PO DAILY #30 tabs 08/01/23 02/20/24 Unknown Rx cetirizine 10 mg tablet (Zyrtec) 10 mg PO DAILY PRN 01/30/24 02/20/24 Unknown History vitamins no.148-iron 27 cap PO 01/30/24 02/20/24 Unknown History mg-folate 1 mg-dha 205 mg capsule cimetidine 400 mg tablet See Rx Instructions .Route 02/16/24 02/20/24 Unknown Rx .COMPLEX #60 tabs Allergies Allergy/AdvReac Type Severity Reaction Status Date / Time cephalexin [From Keflex] Allergy Unknown Verified 05/01/21 18:30 [facility] Anesthesia Medical History Psoriasis Surgical History History of low transverse section [place] teeth extracted Family History Grandmother Diabetes Type 1, other cousins with Type 1 as well Social History Smoking and tobacco/nicotine status: never used tobacco/nicotine Alcohol intake: never Substance/Drug Use: never Data Anesthesia Cardiac Studies: No Data to Display
[2024-03-04] VITALS (34 sets, daily range): BP systolic 89–122; BP diastolic 50–69; PULSE 61–87; RESP 15–18; TEMP 36.5–36.9; O2SAT 98–99; BMI 51.5
[2024-03-04] MEDS: lactated ringers 1,000 ML 999 ML IV (06:07)
[2024-03-04 06:18] LABS: Basophils # 0.1 10^3/uL (0.0-0.1); Basophils % 0.4 %; Eosinophils # 0.2 10^3/uL (0.0-0.8); Eosinophils % 2.1 %; Lymphocytes # 2.6 10^3/uL (0.8-4.8); Lymphocytes % 21.9 %; Mean Corpuscular HGB Conc 32.8 g/dL (30-55); Mean Corpuscular Volume 91.5 fl (85-98); Mean Platelet Volume 9.6 fL (7.4-10.4); Monocytes # 1.1 10^3/uL (0.2-0.9); Monocytes % 9.2 %; Neutrophils # 7.57 10^3/uL (1.8-7.7); Neutrophils % 64.7 %; Nucleated Red Blood Cells % 0 %; Platelet Count 257 10^3/cmm (157-399); Red Blood Count 4.37 10^6/uL (3.85-5.65); Red Cell Distribution Width 13.7 % (12.1-15.1)
--- NOTE | 2024-03-04 06:49 | P.HP_ITS ---
Providers/Chief Complaint 2 Admitting Physician: Bryan Winn MD Primary Care Provider: Bryan Winn MD Chief Complaint: Epi Consult History of Present Illness Leeann Miranda is a 23 year old @ 39.3 wks by 7 wk US inconsistent with LMP. Preg c/b h/o borderline gHTN, h/o LTCS due to intolerance of labor, psoriasis, elevated 1-hr GTT with normal 3-hr GTT, depression/anxiety - weaned off of Sertraline in 1st TM, Low-lying placenta, mild polyhydramnios, transverse lie. The patient presented to labor and delivery for a scheduled repeat low- transverse section with bilateral tubal ligation. She is feeling well at this time. Throughout her there was concern for placental previa, however she had an ultrasound done in [place] showing that this had moved up to a low-lying placenta and was nearly 2 cm from the cervix, however not quite. Because of this it was felt best to proceed with a repeat low-transverse section as well as the fact that the is in the transverse lie. The patient is feeling well today. She denies any chest pains, shortness of breath, nausea, vomiting, diarrhea, constipation, dysuria, leakage of fluid, vaginal bleeding, fever. Medications/Allergies Home Medications Medication Instructions Recorded Confirmed Last Taken Type sertraline 50 mg tablet 50 mg PO DAILY #30 tabs 08/01/23 03/04/24 Unknown Rx cetirizine 10 mg tablet (Zyrtec) 10 mg PO DAILY PRN Allergy Symptoms 01/30/24 03/04/24 Unknown History vitamins no.148-iron 27 1 cap PO DAILY 01/30/24 03/04/24 03/03/24 History mg-folate 1 mg-dha 205 mg capsule cimetidine 400 mg tablet See Rx Instructions .Route 02/16/24 03/04/24 Unknown Rx .COMPLEX #60 tabs Allergies Allergy/AdvReac Type Severity Reaction Status Date / Time cephalexin [From Keflex] Allergy Unknown Verified 03/04/24 06:38 PFSH Acute 2 PFSH: Medical History Psoriasis Surgical History History of low transverse section [place] teeth extracted Family History Grandmother Diabetes Type 1, other cousins with Type 1 as well Social History Smoking and tobacco/nicotine status: never used tobacco/nicotine Alcohol intake: never Substance/Drug Use: never Female Reproductive History: : 3 Vitals/I&O/Wt Last Vital Signs Temp 98.1 F 03/04/24 05:31 Pulse 81 03/04/24 06:32 Resp 18 03/04/24 05:31 BP 102/58 03/04/24 06:32 O2 Del Method Room Air 03/04/24 06:21 Weight last 48 hrs Weight 255 lb 5 oz Physical Exam 2 Narrative: General: Alert and oriented x3 Eyes: Pupils equal round and reactive to light and accommodation Mouth: Mucous membranes moist, pharynx non-erythematous Cardiac: Regular rate and rhythm without murmurs Lungs: Clear to auscultation bilaterally without wheezes, crackles or rhonchi Abdomen: Soft, non-tender, fundus large for gestational age Extremities: Trace edema in the bilateral lower extremities Data 03/04/24 05:57 A&P Assessment and plan (1) Supervision of normal intrauterine in multigravida: We will plan to proceed with a repeat low-transverse section with bilateral tubal ligation. The patient reiterated that she does not want to bear more children and is in agreement with the tubal. heart tones are in the mid 150s with a category 1 tracing. The patient is not graphing any significant contractions. All questions were answered. The patient and her are in agreement with proceeding at this time. Attestations 2 Medical Necessity Statement*: The patient will be here for greater than 2 midnights due to routine intrapartum and management of labor and delivery. Coding Level of Care Code Acute Code for Chg Fwd Diagnoses Supervision of normal intrauterine in multigravida Z34.80
[2024-03-04] MEDS: citric acid-sodium citrate 30 mL UDC PO (07:01)
[2024-03-04] MEDS: metoclopramide 5 mg/mL SDV 2 mL 10 MG IV (07:02)
[2024-03-04] MEDS: famotidine 20 mg/2 mL INJ IVP (07:02)
[2024-03-04] MEDS: ceFAZolin 2,000 mg SDV 2000 MG IVP (07:11)
--- NOTE | 2024-03-04 09:50 | PM.OP ---
Operative Report Date of procedure: March 04, 2024 Pre-op diagnosis: 1. Intrauterine at 39.3 weeks gestation 2. Prior section due to intolerance of labor 3. Low-lying placenta 4. Depression and anxiety 5. Polyhydramnios 6. Transverse lie 7. Patient desiring sterilization Post-op diagnosis: 1. Intrauterine status post repeat low-transverse section with bilateral tubal ligation at 39.3 weeks gestation 2. Prior section due to intolerance of labor 3. Low-lying placenta 4. Depression and anxiety 5. Polyhydramnios 6. Breech presentation 7. Delivery of infant female weighing 7 pounds 15 ounces with Apgars of 5 and 8 Procedure done: Repeat low-transverse section with bilateral tubal ligation Specimens removed/disposition: Placenta discarded Bilateral tube segments sent to pathology Surgeon: Bryan Winn MD Estimated blood loss (mL): 600 IV fluids: 1200 mL Urine output: 300 mL Complications: None Brief History: Leeann Miranda is a 23 year old G3 now P2012 status post repeat low-transverse section with bilateral tubal ligation @ 39.3 wks by 7 wk US inconsistent with LMP. Preg c/b h/o borderline gHTN, h/o LTCS due to intolerance of labor, psoriasis, elevated 1-hr GTT with normal 3-hr GTT, depression/anxiety - weaned off of Sertraline in 1st TM, Low-lying placenta, mild polyhydramnios, transverse lie. The patient presented to labor and delivery for a scheduled repeat low-transverse section with bilateral tubal ligation. She is feeling well at this time. Throughout her there was concern for placental previa, however she had an ultrasound done in [place] showing that this had moved up to a low-lying placenta and was nearly 2 cm from the cervix, however not quite. Because of this it was felt best to proceed with a repeat low-transverse section as well as the fact that the infant is in the transverse lie. Procedure: After informed consent was obtained, the patient was taken to the operating room and the patient was prepped and draped in a normal sterile fashion in the dorsal supine position.? A spinal was placed and adequate anesthesia was obtained.? At 8:00 AM on 03/04/2024 a Pfannenstiel skin incision was made and carried through to the underlying layer of fascia using a scalpel.? The fascial incision was then extended laterally using curved Mayos.? The fascia was then grasped with Jordyn clamps and the underlying rectus muscles were dissected off taking care to avoid injury to the underlying tissues.? The peritoneum was entered bluntly with one digit.? It was then bluntly.? The bladder blade was placed and the vesicouterine peritoneum was well below the lower uterine segment of the uterus.? The uterine incision was made in the lower uterine segment in a transverse fashion with the scalpel at 8:06 AM.? The amniotic membrane was entered bluntly and a very large amount of clear fluid was noted.? The was in the breech position with legs crossed. After some maneuvering, the right leg was able to be delivered with a sweeping method. The left leg was able to be delivered following this. Next the 's breech was delivered followed by the right upper extremity with a sweeping method of the arm towards the body followed by a similar method on the left arm. Finally the head delivered with a smellie veits maneuver. The infant delivered at 8:08 AM on 03/04/2024.? There was no nuchal cord.? The mouth and nose were suctioned.? The rest of the infant delivered without difficulty.? The infant took a breath immediately upon delivery.? The cord was clamped and cut and the was handed to the awaiting pediatric nurses.? The placenta was then manually expressed.? The uterus was exteriorized from the abdomen.? A wet lap was used to clear the uterus of clots and debris.? The bladder blade was reinserted and the uterine incision was closed using 0 chromic in a running locking fashion.? The uterus was noted to be firm.? A second layer of the same suture was used in the same manner.? Excellent hemostasis was obtained. The bilateral fallopian tubes were located. Babcocks were used to raise the fallopian tube segment and a window was burned underneath the right fallopian tube. 0 chromic was used tie off a section of the tube on each side. A tube segment was removed using Metzenbaums. The remaining fallopian tube segment and was cauterized on each side. A modified [place] technique was used. The fallopian tube segment was sent to pathology. This was repeated on the left side. Excellent hemostasis was noted. Next the posterior cul-de-sac was inspected and was cleared of any blood. The gutters were cleared of any further clots and debris and the uterine incision was again inspected and hemostasis was noted.? The subfascial tissue was inspected for hemostasis and the peritoneum was re-approximated using 2-0 plain in a running fashion.? The fascia was then re-approximated using 0 Vicryl in a running fashion.? The subcutaneous tissue was inspected for hemostasis.? Farida's fascia was then re-approximated using 3-0 plain in a running fashion.? Good hemostasis was noted.? The subcutaneous tissue was then re-approximated using a subcuticular stitch.? The patient tolerated the procedure well and was recovered in stable condition.? Estimated blood loss was 600 mL. Urine in the Carlisle catheter was clear. The patient was taken to recovery in good condition.
--- NOTE | 2024-03-04 10:00 | ANE.PACU2 ---
Inpatient post-anesthesia follow up: Airway intact: Yes Vital signs: Temperature 98.1 F Pulse Rate 86 Respiratory Rate 15 Blood Pressure 101/55 Pulse Oximetry 98 Oxygen Delivery Me thod Room Air Oxygen Flow Rate Fraction of Inspir ed Oxygen Hydration adequate: Yes Nausea and vomiting: No Pain level: 1 Mental status: Baseline
[2024-03-04] MEDS: oxyCODONE-APAP 5-325 mg Tablet PO ×2 (12:22→20:02)
[2024-03-04] MEDS: lanolin oint 7 gm 1 APPLIC TOPICAL (12:23)
[2024-03-04] MEDS: ketorolac 30 mg/mL INJ IVP ×2 (15:09→20:44)
[2024-03-04] MEDS: docusate sodium 100 mg Capsule PO (20:03)
[2024-03-04 21:19] LABS: Hematocrit 38.9 % (36-47); Mean Corpuscular HGB Conc 32.9 g/dL (30-55); Mean Corpuscular Volume 91.3 fl (85-98); Mean Platelet Volume 9.6 fL (7.4-10.4); Platelet Count 232 10^3/cmm (157-399); Red Blood Count 4.26 10^6/uL (3.85-5.65); Red Cell Distribution Width 14.1 % (12.1-15.1); White Blood Count 15.15 10^3/uL (3.29-11.43)
[2024-03-05] VITALS (10 sets, daily range): BP systolic 95–118; BP diastolic 53–63; PULSE 77–90; RESP 15–18; TEMP 35.8–36.7
[2024-03-05] MEDS: oxyCODONE-APAP 5-325 mg Tablet PO ×4 (01:16→15:44)
[2024-03-05] MEDS: ketorolac 30 mg/mL INJ IVP (02:44)
[2024-03-05] MEDS: docusate sodium 100 mg Capsule PO (11:20)
[2024-03-05] MEDS: ibuprofen 800 mg tablet PO (11:47)
--- NOTE | 2024-03-05 18:00 | P.DS_ITS ---
Discharge Providers Date of Admission: 03/04/24 05:17 Date of Discharge: March 05, 2024 Attending Provider at Admission: Bryan Winn MD Attending Provider at Discharge: Bryan Winn MD Primary Care Provider: Bryan Winn MD Diagnoses at Discharge Discharge Diagnosis (1) Supervision of normal intrauterine in multigravida: Status: Resolved Other Information Additional DC diagnoses/information: 1. Intrauterine status post repeat low-transverse section with bilateral tubal ligation at 39.3 weeks gestation 2. Prior section due to intolerance of labor 3. Low-lying placenta 4. Depression and anxiety 5. Polyhydramnios 6. Breech presentation 7. Delivery of infant female weighing 7 pounds 15 ounces with Apgars of 5 and 8 Reason for Visit Reason for Visit: Epi Consult Hospital Course Hospital Course Procedure done: Repeat low-transverse section with bilateral tubal ligation Specimens removed/disposition: Placenta discarded Bilateral tube segments sent to pathology Surgeon: Bryan Winn MD Estimated blood loss (mL): 600 IV fluids: 1200 mL Urine output: 300 mL Complications: None Brief History: Leeann Miranda is a 23 year old G3 now P2012 status post repeat low-transverse section with bilateral tubal ligation @ 39.3 wks by 7 wk US inconsistent with LMP. Preg c/b h/o borderline gHTN, h/o LTCS due to intolerance of labor, psoriasis, elevated 1-hr GTT with normal 3-hr GTT, depression/anxiety - weaned off of Sertraline in 1st TM, Low-lying placenta, mi ld polyhydramnios, breech position. The patient presented to labor and delivery for a scheduled repeat low- transverse section with bilateral tubal ligation. She had no complications with the surgery and has done very well . she is ambulating, voiding, passing gas and tolerating food by mouth. Her bleeding is decreasing well. Her pain has been well-controlled. She has been taking Percocet 2 tablets every 4 hours to keep on top of the pain. I did advise her that I would like to see her start decreasing the intake of Percocet to 1 tab every 6 hours or less and start spacing it out as well. She is to use ibuprofen to help with the pain as well. From an exam standpoint I do not see signs of significant complications. Routine instructions were discussed and the patient requested to be discharged home this evening. We will plan to follow-up on Monday to be sure that she is doing well. All questions were answered. The patient and her are in agreement with current plan of care. Physical Exam Narrative: General: Alert and oriented x3 Cardiac: Regular rate and rhythm without murmurs Lungs: Clear to auscultation bilaterally without wheezes, crackles or rhonchi Abdomen: Soft, mild tenderness over uterus. The uterus is firm and 2 cm below the umbilicus. Incision is clean and dry without signs of infection or dehiscence. Extremities: Trace edema in the bilateral lower extremities Urinary Catheter Management: Carl[place] Latex: Cath Placed During This Visit: yes, but has since been removed by the nurse Reason for Continuing Indwelling Catheter: Decision to DC Catheter Urinary Catheter Date of Insertion: 03/04/24 Urinary Catheter Time of Insertion: 07:30 Date Urinary Catheter Removed: 03/04/24 Time Urinary Catheter Discontinued: 18:00 Discharge Data Studies Completed and Pending Pending at discharge Category Date Time Status Pathology: Surgical [PTH] Routine Pth 03/04/24 13:43 Received Laboratory Results WBC 15.15 10^3/uL (3.29-11.43) H 03/04/24 20:11 RBC 4.26 10^6/uL (3.85-5.65) 03/04/24 20:11 Hgb 12.80 g/dL (11.27-16.99) 03/04/24 20:11 Hct 38.9 % (36-47) 03/04/24 20:11 MCV 91.3 fl (85-98) 03/04/24 20:11 MCH 30.0 pg (27-33) 03/04/24 20:11 MCHC 32.9 g/dL (30-55) 03/04/24 20:11 RDW 14.1 % (12.1-15.1) 03/04/24 20:11 Plt Count 232 10^3/cmm (157-399) 03/04/24 20:11 MPV 9.6 fL (7.4-10.4) 03/04/24 20:11 Neut % (Auto) 64.7 % 03/04/24 05:57 Lymph % (Auto) 21.9 % 03/04/24 05:57 Anson % (Auto) 9.2 % 03/04/24 05:57 Eos % (Auto) 2.1 % 03/04/24 05:57 Baso % (Auto) 0.4 % 03/04/24 05:57 Neut # (Auto) 7.57 10^3/uL (1.8-7.7) 03/04/24 05:57 Lymph # (Auto) 2.6 10^3/uL (0.8-4.8) 03/04/24 05:57 Anson # (Auto) 1.1 10^3/uL (0.2-0.9) H 03/04/24 05:57 Eos # (Auto) 0.2 10^3/uL (0.0-0.8) 03/04/24 05:57 Baso # (Auto) 0.1 10^3/uL (0.0-0.1) 03/04/24 05:57 Nucleated RBC % (auto) 0 % 03/04/24 05:57 Nucleated RBCs # 0.0 /100WBC 03/04/24 05:57 Blood Type O Positive 03/04/24 05:57 Rho(D) Type Rh positive 03/04/24 05:57 Antibody Screen Negative 03/04/24 05:57 Vitals Last Vital Signs Temp 98.0 F 03/05/24 11:54 Pulse 77 03/05/24 16:28 Resp 18 03/05/24 15:44 BP 118/57 03/05/24 16:28 Pulse Ox 98 03/04/24 10:00 O2 Del Method Room Air 03/05/24 05:11 Discharge Plan Discharge Patient Disposition: Home Condition: Stable Prescriptions: New ibuprofen 800 mg Tablet 800 mg PO TID Qty: 60 0RF oxycodone-acetaminophen 5-325 mg Tablet 1 tab PO Q6H PRN (Reason: Moderate To Severe Pain) Qty: 30 0RF docusate sodium 100 mg Capsule 100 mg PO BID Qty: 30 0RF Continued cetirizine [Zyrtec] 10 mg tablet 10 mg PO DAILY PRN (Reason: Allergy Symptoms) [id number] 6-dha 27 mg iron-1 mg -205 mg capsule 1 cap PO DAILY sertraline 50 mg tablet 50 mg PO DAILY Qty: 30 6RF Hold Instructions: Being held during Discontinued cimetidine 400 mg tablet See Rx Instructions .ROUTE .COMPLEX Qty: 60 0RF Dose Instruction: TAKE 1 TABLET BY MOUTH TWICE DAILY with meals Rx Instructions: TAKE 1 TABLET BY MOUTH TWICE DAILY with meals No Action ondansetron HCl 4 mg tablet 4 mg PO Q8H PRN (Reason: nausea and vomiting) Qty: 20 0RF Discharge Orders: Discharge Order (Routine); Ordered 03/05/24 Ordered By: Bryan Winn Referrals: Bryan Winn MD [Primary Care Provider] - 03/08/24 11:30 am Discharge Diet: Regular Discharge Activity: Limit activity as instructed Patient Instructions: Depression (DC), Bleeding (DC), Opioid Safety (DC), Preeclampsia and Eclampsia After Delivery (GEN), (DC), Tubal Ligation (DC), Hemorrhage (DC), OB Discharge Report, OB Food/Drug Interaction Guide, Opioid Safety, OB [facility], Abnormal Bleeding Activity Restrictions/Additional Instructions: Do not lift anything heavier than your in the car seat for the first 3 weeks, then gradually increase lifting and return to full lifting at 6 weeks . If you have any concern for infection in your incision site, please let Dr. Winn know right away. Nothing per vagina for 6 weeks. Showers are preferred instead of baths for the first 6 weeks. Discharge Attestations Time Spent in Discharge Care*: greater than 30 min Quality Metrics Clinical Quality Measures [ No reported AMI, CVA or VTE this stay] Coding Level of Care Code Acute Code for Chg Fwd Diagnoses Supervision of normal intrauterine in multigravida Z34.80
== END 2024-03-05 19:15 | disposition home or self-care (01) | DRG 784 ==
PROVIDERS: Admitting Provider Family Medicine; PCP Family Medicine; Visit Provider Family Medicine
PROC: 10D00Z1 Extraction of Products of Conception, Low, Open Approach (ICD-10-PCS; CPT 59514; principal; 2024-03-04 07:00)
DX: O34.211 Maternal care for low transverse scar from previous cesarean delivery (principal); O44.43 Low lying placenta NOS or without hemorrhage, third trimester; O99.344 Other mental disorders complicating childbirth; O40.3XX0 Polyhydramnios, third trimester, not applicable or unspecified; O32.1XX0 Maternal care for breech presentation, not applicable or unspecified; F41.9 Anxiety disorder, unspecified; F32.A Depression, unspecified; Z3A.39 39 weeks gestation of pregnancy; Z37.0 Single live birth; Z30.2 Encounter for sterilization
CPT/HCPCS: 36415; 51702; 59409; 85025; 85027; 86850; 86900; 88302; 96374; 96376; 98960; J0690; J1200; J1885; J2274; J2405; J2765; J3010; J3490; J7030; J7120

== ENCOUNTER 2024-03-08 13:09 | Outpatient (CLI) | payer BC, MEDICAID, SELFPAY ==
--- NOTE | 2024-03-08 15:45 | USCV_ITS ---
Leeann Miranda Age: 23 Gender: F : 2000 Exam Date: 03/08/2024 13:15 Ordering Phys: Bryan Winn MD Technologist: CT Exam Location: [facility]_ Indication: PROCEDURES: Venous duplex imaging was performed in only the left lower extremity. On the left side, the common femoral, superficial femoral, profunda femoral, popliteal, posterior tibial, greater saphenous veins, and the peroneal trunk were identified and interrogated in the standard fashion. These veins were found to be easily compressible with spontaneous blood flow. No evidence of insufficiency or thrombus noted. FINDINGS: Normal us CONCLUSIONS No evidence of left lower extremity DVT. Jose Ramon Jonas MD (Electronically Signed) Final Date: 08 March 2024 13:51 S
== END 2024-03-08 13:10 | disposition home or self-care (01) ==
LOC: RAD 13:09
PROVIDERS: PCP Family Medicine; Visit Provider Family Medicine
DX: M79.662 Pain in left lower leg (principal); M79.89 Other specified soft tissue disorders
CPT/HCPCS: 93971

== ENCOUNTER 2024-09-18 11:11 | Outpatient (CLI) | payer BC, MEDICAID, SELFPAY ==
[2024-09-18 11:46] LABS: Basophils # 0.1 10^3/uL (0.0-0.1); Basophils % 0.8 %; Eosinophils # 0.3 10^3/uL (0.0-0.8); Eosinophils % 3.9 %; Hematocrit 43.7 % (36-47); Lymphocytes # 2.5 10^3/uL (0.8-4.8); Lymphocytes % 34.2 %; Mean Corpuscular HGB Conc 32.3 g/dL (30-55); Mean Corpuscular Hemoglobin 28.9 pg (27-33); Mean Corpuscular Volume 89.5 fl (85-98); Monocytes # 0.7 10^3/uL (0.2-0.9); Monocytes % 9.2 %; Neutrophils # 3.68 10^3/uL (1.8-7.7); Neutrophils % 51.3 %; Nucleated Red Blood Cells % 0 %; Platelet Count 322 10^3/cmm (157-399); Red Blood Count 4.88 10^6/uL (3.85-5.65); Red Cell Distribution Width 13.2 % (12.1-15.1); White Blood Count 7.17 10^3/uL (3.29-11.43)
[2024-09-18 12:26] LABS: 25 Hydroxy Vitamin D 20 ng/mL (30-100); Alanine Aminotransferase 11 U/L (0-33); Albumin Level 4.2 g/dL (3.5-5.2); Alkaline Phosphatase 104 U/L (35-105); Aspartate Amino Transferase 13 U/L (0-32); Blood Urea Nitrogen 11 mg/dL (6-20); Carbon Dioxide 25 mmol/L (22-29); Chloride 103 mmol/L (98-107); Globulin 2.8 g/dL (1.3-4.6); Glomerular Filtration Rate 150.3 mL/min (90-130); Glucose 74 mg/dL (65-115); Iron 87 ug/dL (37-145); Osmolality Calculated 280 mOsm/kg (285-295); Percent Saturation 24.8 % (20-50); Sodium 136 mmol/L (136-145); Thyroid Stimulating Hormone 1.43 uIU/mL (0.27-4.20); Total Bilirubin 0.4 mg/dL (0.15-1.2); Total Iron Binding Capacity 350 mcg/dl; Unsaturated Iron Binding 263 ug/dL (112-347)
== END 2024-09-18 11:12 | disposition home or self-care (01) ==
PROVIDERS: PCP Family Medicine; Visit Provider Family Medicine
DX: E55.9 Vitamin D deficiency, unspecified (principal); Z51.81 Encounter for therapeutic drug level monitoring; R53.81 Other malaise; R53.83 Other fatigue; D64.9 Anemia, unspecified; E03.9 Hypothyroidism, unspecified
CPT/HCPCS: 36415; 80053; 82306; 83540; 83550; 84443; 85025

== ENCOUNTER → 2024-12-11 12:00 | Outpatient (BNVA) | payer BC, MEDICAID, SELFPAY | PROVIDERS: PCP Family Medicine; Visit Provider Internal Medicine Rheumatology | DX: M25.50 Pain in unspecified joint (principal); L40.9 Psoriasis, unspecified | CPT/HCPCS: 36415; 80076; 82306; 82550; 82565; 83520; 85651; 86140; 86431; 86480; 86704; 86803; 86812; 87340 ==